=== PATIENT | female | born 1975 | race Caucasian/White ===

== ENCOUNTER 2023-08-21 12:12 | Emergency (ER) | payer OTHER, SELFPAY ==
--- NOTE | ~2023-08-21 | XR_ITS ---
EXAMINATION: XR shoulder LT min 2V INDICATION: Left shoulder pain TECHNIQUE: Four views of the left shoulder are submitted. COMPARISON: None FINDINGS: Alignment is normal. There is subtle lucency involving the greater tuberosity of the proxim al humerus. Glenohumeral and acromioclavicular joint spaces are normal. Soft tissues are unremarkable . IMPRESSION: 1. Subtle lucency involving the greater tuberosity of the proximal humerus, consistent with nondispla kayla fracture. Reviewed, dictated and finalized at location F. IMPRESSION: 1. Subtle lucency involving the greater tuberosity of the proximal humerus, con sistent with nondisplaced fracture.
[2023-08-21 12:32] VITALS: BP 105/73; PULSE 83; RESP 18; TEMP 36.7; O2SAT 100
--- NOTE | 2023-08-21 12:50 | ED.UPPEXIN ---
HPI - Extremity Injury (Upper) General Chief Complaint: Extremity Injury, Upper Stated Complaint: left arm and shoulder pain Time Seen by Provider: 08/21/23 12:40 Source: patient and RN notes reviewed Mode of arrival: ambulatory Limitations: no limitations History of Present Illness HPI narrative: Patient presents today complaining of a left shoulder injury. She was pulling weeds from a basement window well when she slipped and fell inside and her arm/shoulder stayed on the edge. Injury occurred approximately 3-1/2 hours prior to arrival. Denies numbness or tingling in the arm or hand. She currently rates her pain 08/01 and has been applying ice and taking ibuprofen with some relief. Related Data Home Medications Medication Instructions Recorded Confirmed bupropion HCl 150 mg tablet,12 hr 150 mg PO DAILY 08/21/23 08/21/23 sustained-release montelukast 10 mg tablet 10 mg PO DAILY 08/21/23 08/21/23 norethindrone 1 mg-ethinyl 2 tablet PO DAILY 08/21/23 08/21/23 estradiol 10 mcg (24)-iron 10 mcg(2) tablet (Lo Loestrin Fe) Allergies Allergy/AdvReac Type Severity Reaction Status Date / Time amoxicillin [From Amoxil] AdvReac Unknown Verified 08/21/23 12:41 clarithromycin [From Biaxin] AdvReac Unknown Verified 08/21/23 12:41 metronidazole [From Flagyl] AdvReac Unknown Verified 08/21/23 12:41 Review of Systems Review of Systems: CONSTITUTIONAL: Denies body aches, fever, chills, or sweats. EYES: Denies visual changes, redness, or discharge. ENT: Denies rhinorrhea, congestion, sore throat, or otalgia. CARDIOVASCULAR: Denies chest pain, palpitations, or edema. RESPIRATORY: Denies cough or dyspnea. GASTROINTESTINAL: Denies abdominal pain, nausea, vomiting, or diarrhea. GENITOURINARY: Denies dysuria or hematuria. SKIN: Denies rash, itching, or wounds. MUSCULOSKELETAL: Denies back pain. + left shoulder pain NEUROLOGIC: Denies headache, numbness, tingling, or weakness. PSYCH: Denies depression or anxiety. [facility] Past Medical History Medical History (Updated 08/21/23 @ 13:27 by Ellen Guerrero, GARMENT SEWING MACHINE OPERATOR, ) Anxiety Comments At time of signature, I have reviewed and agree with nursing past medical, surgical, social and family history unless otherwise noted. Please see nursing chart for further information. There is no relevant family history pertinent to the presenting complaint Exam Narrative: GENERAL: Well-appearing, well-nourished, and in no acute distress. HEAD: Normocephalic, atraumatic. EYES: EOMI. No redness or drainage. Conjunctivae normal. ENT: Mucous membranes pink and moist. NECK: Normal AROM. CHEST: No respiratory distress. EXTREMITIES: Left shoulder: Tenderness to the anterior and lateral shoulder, extending to the biceps. No edema or ecchymosis noted. Distal sensation intact. Capillary refill normal. Radial pulse normal. Full range of motion of the wrist and elbow. Significantly limited range of motion of the shoulder due to pain. SKIN: Warm, dry, no rash. Capillary refill normal. Normal skin turgor. NEURO: No focal deficits. Alert and oriented x3. Gait steady. PSYCH: Normal affect. No signs of depression or anxiety. Course Course Level of Care: Express Care Visit Vital Signs Vital signs: Vital Signs Temperature 98.0 F 08/21/23 12:32 Pulse Rate 83 08/21/23 12:32 Respiratory Rate 18 08/21/23 12:32 Blood Pressure 105/73 08/21/23 12:32 Pulse Oximetry 100 08/21/23 12:32 Oxygen Delivery Room Air 08/21/23 12:32 Temperature 98.0 F 08/21/23 12:32 Pulse Rate 83 08/21/23 12:32 Respiratory Rate 18 08/21/23 12:32 Blood Pressure 105/73 08/21/23 12:32 Pulse Oximetry 100 08/21/23 12:32 Oxygen Delivery Room Air 08/21/23 12:32 Reviewed MDM - Extremity Injury (Upper) MDM Narrative Medical decision making narrative: X-ray shows fracture of the proximal humerus. Patient will be placed in a sling. Discussed orthopedic follow-up. Pr
== END 2023-08-21 13:34 | disposition home or self-care (01) ==
PROVIDERS: Emergency Provider Nurse Practitioner; PCP Family Medicine
DX: S42.295A Other nondisplaced fracture of upper end of left humerus, initial encounter for closed fracture (principal); Z79.899 Other long term (current) drug therapy; W01.198A Fall on same level from slipping, tripping and stumbling with subsequent striking against other object, initial encounter
CPT/HCPCS: 73030; 99204; A4565; G0463

== ENCOUNTER 2023-10-26 13:50 | Emergency (ER) | payer OTHER, SELFPAY ==
--- NOTE | 2023-10-26 14:02 | ED.URI ---
HPI - URI/Sore Throat General Stated Complaint: cold symptoms Time Seen by Provider: 10/26/23 14:02 Source: patient Mode of arrival: ambulatory Limitations: no limitations History of Present Illness HPI Narrative: Kenia is a 48-year-old female patient presenting to the clinic today with complaints cough, nasal congestion, and fatigue times 2-3 days. She reports no known fever or chills. Denies any shortness of breath or chest pain has had positive exposure to someone with COVID. MD elicited complaint: cough, nasal congestion and other (Fatigue) Related Data Home Medications Medication Instructions Recorded Confirmed bupropion HCl 150 mg tablet,12 hr 150 mg PO DAILY 08/21/23 10/26/23 sustained-release montelukast 10 mg tablet 10 mg PO DAILY 08/21/23 10/26/23 norethindrone 1 mg-ethinyl 2 tablet PO DAILY 08/21/23 10/26/23 estradiol 10 mcg (24)-iron 10 mcg(2) tablet (Lo Loestrin Fe) tramadol 50 mg tablet 50 mg PO PRN PRN Pain 10/26/23 10/26/23 Allergies Allergy/AdvReac Type Severity Reaction Status Date / Time amoxicillin [From Amoxil] AdvReac Mild Hives Verified 10/26/23 14:04 clarithromycin [From Biaxin] AdvReac Mild Hives Verified 10/26/23 14:04 metronidazole [From Flagyl] AdvReac Mild Hives Verified 10/26/23 14:04 Review of Systems Review of Systems: Pertinent positives per HPI. Patient denies any fever, chills, rash, headache, visual changes, dizziness, shortness of breath, chest pain, palpitations, nausea, vomiting, diarrhea, constipation, abdominal pain, or any urinary issues. PMFSH Past Medical History Medical History Anxiety Comments At the time of my signature, I reviewed and agree with the nursing past medical, surgical, social, and family history. There is no relevant family history pertinent to the patient complaint. Exam Narrative: General: Well-developed, well nourished, in no apparent distress Head: Normocephalic, atraumatic Eyes: Pupils equally round and reactive to light bilaterally, EOM intact, sclera and conjunctive clear, no discharge, lids normal Ears: TMs intact and clear, ear canals clear, no drainage, grossly hearing normal. Nose: Nares patent, clear nasal discharge, no inflammation, no sinus tenderness. Mouth: Oral pharynx without lesions or masses, good dentition, MMM. Neck: Supple, trachea midline, no enlargement of anterior or posterior cervical nodes, no thyroid masses or goiter palpable. Cardio: Regular rate and rhythm, s1 and s2 normal, no murmur appreciated. Resp: Clear to auscultation bilaterally, no rhonchi, rales, wheezing or rubs Course Course Emergency Course: Portions of this record may have been created with voice recognition software. Level of Care: Express Care Visit Vital Signs Vital signs: Vital signs reviewed MDM - URI/Sore Throat MDM Narrative Medical decision making narrative: At the time of visit patient is resting comfortably on the exam table. Patient appears to be nontoxic. COVID and influenza testing was performed. Supportive measures were discussed with the patient and they voiced understanding discharge instructions and agrees to treatment plan. Return precautions reviewed Differential Diagnosis Differential diagnosis: Likely upper respiratory infection, otitis media, sinusitis, viral infection, bronchitis, influenza, pharyngitis and other (COVID) Discharge Plan Discharge Clinical Impression: URI (upper respiratory infection) Patient Disposition: Home, Self-Care Condition: Stable Instructions: Antibiotic Form, Upper Respiratory Infection (ED) Additional Instructions: COVID and influenza testing was negative in the clinic today. May take [id number] Sudafed as needed for nasal congestion Increase fluids and stay well hydrated Tylenol/motrin for pain/fever Flonase and OTC antihistamines such as Claritin or Zyrtec as directed Vicks vapor
[2023-10-26 14:08] VITALS: BP 130/74; PULSE 74; RESP 16; TEMP 36.1; O2SAT 99
== END 2023-10-26 14:32 | disposition home or self-care (01) ==
PROVIDERS: Emergency Provider Nurse Practitioner Family
DX: J06.9 Acute upper respiratory infection, unspecified (principal); Z20.822 Contact with and (suspected) exposure to COVID-19; F41.9 Anxiety disorder, unspecified
CPT/HCPCS: 87426; 87804; 99213; C9803; G0463

== ENCOUNTER 2023-11-27 11:39 | Emergency (ER) | payer OTHER, SELFPAY ==
--- NOTE | 2023-11-27 11:47 | ED.URI ---
HPI - URI/Sore Throat General Chief Complaint: Upper Respiratory Infection Stated Complaint: cold symptoms Time Seen by Provider: 11/27/23 11:49 Source: patient Mode of arrival: ambulatory Limitations: no limitations History of Present Illness HPI Narrative: Kenia is a 48-year-old female patient presenting to the clinic today with complaints of runny nose and cough x1 week. Reports that the nasal drainage is yellow. Has had exposure to COVID and is concerned that she may have influenza. She is requesting COVID and influenza testing. MD elicited complaint: cough and nasal congestion Related Data Home Medications Medication Instructions Recorded Confirmed bupropion HCl 150 mg tablet,12 hr 150 mg PO DAILY 08/21/23 11/27/23 sustained-release montelukast 10 mg tablet 10 mg PO DAILY 08/21/23 11/27/23 norethindrone 1 mg-ethinyl 2 tablet PO DAILY 08/21/23 11/27/23 estradiol 10 mcg (24)-iron 10 mcg(2) tablet (Lo Loestrin Fe) tramadol 50 mg tablet 50 mg PO PRN PRN Pain 10/26/23 11/27/23 Allergies Allergy/AdvReac Type Severity Reaction Status Date / Time amoxicillin [From Amoxil] AdvReac Mild Hives Verified 11/27/23 12:02 clarithromycin [From Biaxin] AdvReac Mild Hives Verified 11/27/23 12:02 metronidazole [From Flagyl] AdvReac Mild Hives Verified 11/27/23 12:02 Review of Systems Review of Systems: Pertinent positives per HPI. Patient denies any fever, chills, rash, headache, visual changes, dizziness, shortness of breath, chest pain, palpitations, nausea, vomiting, diarrhea, constipation, abdominal pain, or any urinary issues. PMFSH Past Medical History Medical History Anxiety Comments At the time of my signature, I reviewed and agree with the nursing past medical, surgical, social, and family history. There is no relevant family history pertinent to the patient complaint. Exam Narrative: General: Well-developed, well nourished, in no apparent distress Head: Normocephalic, atraumatic Eyes: Pupils equally round and reactive to light bilaterally, EOM intact, sclera and conjunctive clear, no discharge, lids normal Ears: TMs intact and clear, ear canals clear, no drainage, grossly hearing normal. Nose: Nares patent, clear discharge, mild inflammation, no sinus tenderness. Mouth: Oral pharynx without lesions or masses, good dentition, MMM. Neck: Supple, trachea midline, no enlargement of anterior or posterior cervical nodes, no thyroid masses or goiter palpable. Cardio: Regular rate and rhythm, s1 and s2 normal, no murmur appreciated. Resp: Clear to auscultation bilaterally, no rhonchi, rales, wheezing or rubs Course Course Emergency Course: Portions of this record may have been created with voice recognition software. Level of Care: Express Care Visit Vital Signs Vital signs: Vital signs reviewed MDM - URI/Sore Throat MDM Narrative Medical decision making narrative: At the time of visit patient is resting comfortably on the exam table. Patient appears to be nontoxic. Influenza and COVID test were negative. I suspect patient has URI. Prescription for prednisone was sent to the pharmacy. Supportive measures were discussed with the patient and they voiced understanding discharge instructions and agrees to treatment plan. Return precautions reviewed Differential Diagnosis Differential diagnosis: Likely upper respiratory infection, otitis media, sinusitis, viral infection, bronchitis, influenza, pharyngitis and other (COVID) Discharge Plan Discharge Clinical Impression: Upper respiratory infection Patient Disposition: Home, Self-Care Condition: Stable Instructions: Antibiotic Form, Upper Respiratory Infection (ED) Additional Instructions: COVID and influenza testing was negative in the clinic today. Take prescription medications only as prescribed-prednisone Increase fluids and stay well hydrated Tylenol/motri
[2023-11-27 11:56] VITALS: BP 131/73; PULSE 85; RESP 16; TEMP 36.7; O2SAT 100
== END 2023-11-27 12:26 | disposition home or self-care (01) ==
PROVIDERS: Emergency Provider Nurse Practitioner Family
DX: J06.9 Acute upper respiratory infection, unspecified (principal); Z20.822 Contact with and (suspected) exposure to COVID-19; F41.9 Anxiety disorder, unspecified
CPT/HCPCS: 87426; 87804; 99213; G0463

== ENCOUNTER 2025-09-09 13:22 | Emergency (ER) | payer OTHER, SELFPAY ==
--- OUTSIDE RECORDS SUMMARY | 2024-05-06 16:30 | XMS_ITS ---
Author Organization [facility] [place] ([address]) Address [address] [place] [address] Care Team Providers Care Pantry Attendant Name Role Phone Vandana Kenyon MD Primary Care Provider Unavailabl Kerrie Kirkpatrick Unavailable [phone] ZZ-Migration, Provider Unavailable Unavailab le Allergies Allergen (clinical drug ingredient) Drug/Non Drug Allergy documented on EMR Reaction Allergy Type Onset Date Status BIAXIN (uncoded) abdominal pain Allergy Active metronidazole Flagyl abdominal pain Drug Allergy Active REASON FOR VISIT [facility] To [facility] Conversion Encounter Medications Medication SIG (Take, Route, Frequency, Duration) Notes Start Date End Date Status ASTELIN 137 MCG/INH 2 SPRAY(S), EACH NOSTRIL INTRANASALLY BID; Duration: 30 DAY(S) *Please review for potential replacement for e-prescription and drug interaction check* Active buPROPion HCl ER (SR) 150 MG 1 tab(s) orally 2 times a day usually only takes 1 Active ZyrTEC Allergy 10 MG 1 tab(s) orally once a day Active Montelukast Sodium 10 MG 1 tab(s) orally once a day Active Lo Loestrin Fe 1 MG-10 MCG / 10 MCG 1 tab(s) orally once a day Active Flonase Allergy Relief 50 MCG/ACT 2 spray(s) intranasally (avoid nasal septum) twice daily; Duration: 30 day(s) Active Xyzal Allergy 24HR 5 MG 1 tab(s) orally once a day (in the evening); Duration: 30 day(s) Active Montelukast Sodium 10 MG 1 tab(s) orally once a day; Duration: 30 day(s) Active Encounters Encounter Location Date [facility] [address] [place] [address] 05/06/[facility]24 Provider Lissy Allergic rhinitis due to pollen J30.1 Assessments Encounter Date Diagnosis (ICD Code) Assessment Notes Treatment Notes Treatment Clinical Notes Section Notes 05/06/2024 Allergic rhinitis due to pollen (ICD-10 - J30.1) Plan Of Treatment Medication Medication Name Sig Start Date Stop Date Notes ASTELIN 137 MCG/INH 2 SPRAY(S), EACH NOSTRIL INTRANASALLY BID; Duration: 30 DAY(S) *Please review for potential replacement for e-prescription and drug interaction check* Flonase Allergy Relief 50 MCG/ACT 2 spray(s) intranasally (avoid nasal septum) twice daily; Duration: 30 day(s) Xyzal Allergy 24HR 5 MG 1 tab(s) orally once a day (in the evening); Duration: 30 day(s) Montelukast Sodium 10 MG 1 tab(s) orally once a day; Duration: 30 day(s) Progress Notes * Theresa IZQUIERDOOB: [birth year] (50 yo F)Acc No.[id number]:05/06/2024 Patient: Kenia LLAMAS Provider: Fortino Gayle :1975 A ge:49 Y S ex:Female Date:05/06/2024 Address:[address] [place], [place] [id number] Pcp:Vandana Kenyon MD Subjective: * Chief Complaints: * 1 . [facility] Conversion Encounter. * Medical History: * Medications: T aking Lo Loestrin Fe 1 MG-10 MCG / 10 MCG Tablet 1 tab(s) orally once a day , Taking ZyrTEC Allergy 10 MG Tablet 1 tab(s) orally once a day , Taking buPROPion HCl ER (SR) 150 MG Tablet Extended Release 12 Hour 1 tab(s) orally 2 times a day , Notes to Pharmacist: usually only takes 1, Taking Montelukast Sodium 10 MG Tablet 1 tab(s) orally once a day * Allergies: F lagyl: abdominal pain, BIAXIN: abdominal pain. Objective: * Vitals: Assessment: * Assessment: 1. A llergic rhinitis due to pollen - J30.1 (Primary) Plan: * Treatment: 2. O thers Continue Flonase Allergy Relief Suspension, 50 MCG/ACT, 2 spray(s), intranasally (avoid nasal septum), twice daily, 30 day(s), QS, Refills 3. * Billing Information: * Visit Code: * Procedure Codes: * Electronic signature of Lyn PATRICIA-Migration on 09/09/2025 at 01:26 PM CDT Sign off status: Pending * Provider: Fortino prieto Migration Date: 0 05/06/2024 Generated for Sundeep beaver/Jessica/Jose on: 1 01:26 PM CDT
--- NOTE | ~2025-09-09 | XR_ITS ---
EXAMINATION: XR foot RT min 3V, 09/09/2025 13:37 CDT HISTORY: lateral pain with trauma COMPARISON: No comparisons available. Findings: No acute fracture or malalignment. No significant degenerative changes. Soft tissues unremarkable. Impression: No acute fracture or malalignment. Reviewed, dictated and finalized at location P. Impression: No acute fracture or malalignment.
--- NOTE | ~2025-09-09 | XR_ITS ---
EXAMINATION: XR ankle RT min 3V, 09/09/2025 13:37 CDT HISTORY: lateral pain with trauma COMPARISON: No comparisons available. Findings: Nondisplaced fracture distal fibula. No significant degenerative changes. Soft tissue swelling. Impression: Fracture detailed above Reviewed, dictated and finalized at location P. Impression: Fracture detailed above
--- OUTSIDE RECORDS SUMMARY | 2025-09-09 13:26 | XMS_ITS | Encounter Summary ---
Author Organization [facility] Care Team Providers Care Seamless Tube Drawer Name Role Phone Enmanuel Jackson MD Primary Care Provider [phone] Keyonna Ventura Primary Care Provider No, Physician Primary Care Provider [phone] Encounter Details Date Type Department Care Team (Latest Contact Info) Description 08/23/2017 Orders Only [facility] ProviderFidelia MD [address] [place] [id number] Social History Tobacco Use Types Packs/Day Years Used Date Smoking Tobacco: Never Assessed Comments Unknown Sex and Gender Information Value Date Recorded Sex Assigned at Not on file Legal Sex Female 12:41 AM TALENT DIRECTOR Gender Identity Not on file Sexual Orientation Not on file documented as of this encounter Plan of Treatment Not on file documented as of this encounter Procedures Procedure Name Priority Date/Time Associated Diagnosis Comments SCAN - LABS 08/23/2017 12:00 AM CDT documented in this encounter Results * SCAN - LABS (08/23/2017 12:00 AM CDT) Narrative 08/23/2017 12:00 AM CDT Ordered by an unspecified provider. Historical Provider Final Res ult documented in this encounter Visit Diagnoses Not on filedocumented in this encounter Care Teams Seamless Tube Drawer Relationship Specialty Start Date End Date Enmanuel Jackson MD PCP - General Family Medicine 03/17/19 08/04/22 Kyeonna Ventura PA PCP - General Family Medicine 08/05/22 06/06/23 No, Physician PCP - General 08/05/23 documented as of this encounter
--- OUTSIDE RECORDS SUMMARY | 2025-09-09 13:26 | XMS_ITS | Encounter Summary ---
Author Organization [facility] Care Team Providers Care Profiling Machine Operator Name Role Phone Enmanuel Jackson MD Primary Care Provider [phone] Keyonna Ventura Primary Care Provider No, Physician Primary Care Provider [phone] Encounter Details Date Type Department Care Team (Latest Contact Info) Description 11/19/2017 Orders Only [facility]INCON[facility] ProviderFidelia MD [address] [place] [id number] Social History Tobacco Use Types Packs/Day Years Used Date Smoking Tobacco: Never Assessed Comments Unknown Sex and Gender Information Value Date Recorded Sex Assigned at Not on file Legal Sex Female 12:41 AM RECEIVING SPECIALIST Gender Identity Not on file Sexual Orientation Not on file documented as of this encounter Plan of Treatment Not on file documented as of this encounter Procedures Procedure Name Priority Date/Time Associated Diagnosis Comments SCAN - LABS 11/23/2017 12:00 AM RECEIVING SPECIALIST SCAN - LABS 11/23/2017 12:00 AM RECEIVING SPECIALIST documented in this encounter Results * SCAN - LABS (11/23/2017 12:00 AM RECEIVING SPECIALIST) Narrative 11/23/2017 12:00 AM RECEIVING SPECIALIST Ordered by an unspecified provider. Historical Provider Final Res ult * SCAN - LABS (11/23/2017 12:00 AM RECEIVING SPECIALIST) Narrative 11/23/2017 12:00 AM RECEIVING SPECIALIST Ordered by an unspecified provider. us Historical Provider MD Final Res ult documented in this encounter Visit Diagnoses Not on filedocumented in this encounter Care Teams Profiling Machine Operator Relationship Specialty Start Date End Date Enmanuel Jackson MD PCP - General Family Medicine 03/17/19 08/04/22 Keyonna Ventura PA PCP - General Family Medicine 08/05/22 06/06/23 No, Physician PCP - General 08/05/23 documented as of this encounter
--- OUTSIDE RECORDS SUMMARY | 2025-09-09 13:26 | XMS_ITS | Clinical Summary ---
Author Organization [facility] Address [address] [place] [address] Care Team Providers Care Fish Bait Picker Name Role Phone Jung Corey MD Unavailable [phone] Vandana Kenyon MD Primary Care Provider [phone] Source Comments [facility],non-owned Affiliates and Associated Physician Practices is amultiple site organization consisting of ambulatory clinics and hospital sitesin [place], [place], [place] and [place]. This disclosure is being madepursuant to the Care Everywhere program and may not contain all information available regarding this patient. Last updated 18.[facility] Allergies Active Allergy Reactions Criticality Noted Date Comments Amoxicillin Low 01/30/2014 Other reaction(s): Other (See Comments) Patient states that this medication does not work for her. Clarithromycin Nausea and/or Vomiting,Headache 08/05/2016 Metronidazole Nausea and/or Vomiting,Headache 08/05/2016 Medications * Be aware that medications may not be up to date on this document. Alwaysverify current medications with the patient. montelukast (Singulair) 10 MG tablet Take 1 (one) tablet by mouth at bedtime Active Multiple Vitamins-Minera ls (MULTIVITAMIN & MINERAL PO) Active b-complex-c capsule Active benzonatate (Tessalon) 200 MG capsule Take 1 (one) capsule by mouth 3 times daily as needed for Cough 30 capsule Active buPROPion HCl (WELLBUTRIN PO) Wellbutrin Act tali norethin-eth estrad-fe biphas (Lo Loestrin Fe) 1 MG-10 MCG / 10 MCG tablet Take 1 (one) tablet by mouth once daily Active Active Problems Problem Noted Date Diagnosed Date Seasonal allergic rhinitis 10/24/2022 Depressive disorder 10/24/2022 Generalized anxiety disorder 02/08/2017 Depression, major, recurrent, moderate 7 Acute gout of left hand 10/19/2016 Interstitial cystitis 05/26/2016 Seasonal allergies 05/26/2016 Chronic interstitial cystitis 04/18/2013 Family History Medical History Relation Name Comments Cancer - Prostate Father Heart Disease Maternal Grandmother CVA Mother Celiac Disease Mother Heart defect Mother Asthma Neg Hx Autoimmune Disease Neg Hx Bipolar Disorder Neg Hx Cancer - Breast Neg Hx Cancer - Colon Neg Hx Cancer - Other Neg Hx Cancer - Ovarian Neg Hx Cancer - Pancreatic Neg Hx Depression Neg Hx Eczema Neg Hx Hypertension Neg Hx Migraine Neg Hx Osteoporosis Neg Hx Seizures Neg Hx Sudd. <30 Neg Hx Thyroid Disease Neg Hx Ulcerative Colitis Neg Hx Relation Name Status Comments Father Alive Maternal Grandmother Mother Alive Social History Tobacco Use Types Packs/Day Years Used Date Smoking Tobacco: Never Smokeless Tobacco: Never Alcohol Use Standard Drinks/Week Comments Yes 0.8 (1 standard drink = 0.6 oz p ure alcohol) rare PHQ-2 Answer Date Recorded PHQ2 TOTAL SCORE 0 08/06/2022 Comments No Sex and Gender Information Value Date Recorded Sex Assigned at Not on file Legal Sex Female 8:58 AM CDT Gender Identity Not on file Sexual Orientation Not on file Last Filed Vital Signs Vital Sign Reading Time Taken Comments Blood Pressure 118/68 02/13/2025 3:36 PM CDT Pulse 89 10/24/2022 12:15 PM NATIONAL BUSINESS DIRECTOR Temperature 36.3 C (97.3 F) 10/24/2022 12:15 PM NATIONAL BUSINESS DIRECTOR Respiratory Rate 18 10/24/2022 12:15 PM NATIONAL BUSINESS DIRECTOR Oxygen Saturation 100% 10/24/2022 12:15 PM NATIONAL BUSINESS DIRECTOR Inhaled Oxygen Concentration - - Weight 74.8 kg (165 lb) 02/13/2025 3:36 PM CDT Height 165.1 cm (5' 5) 02/13/2025 3:36 PM CDT Body Mass Index 27.46 02/13/2025 3:36 PM CDT Plan of Treatment Health Maintenance Due Date Last Done Comments COLOGUARD (AGES 45-75) - COL ON CA SCREENING 1973 COLON MONITORING 1973 COLONOSCOPY - COLON CA SCREENING 1973 CT COLONOGRAPHY - COLON CA SCREENING 1973 Colorectal Cancer Screening 1973 FIT - COLON CA SCREENING 1973 FLEX SIG - COLON CA SCREENING 1973 LIPID TESTING 1973 HIV SCREENING 1988 HEPATITIS C SCREENING 04/21/1991 DTAP/TDAP/TD VACCINES (1 - Tdap) 1992 HEPATITIS B VACCINE (1 of 3 - 19+ 3-dose series) 1992 PNEUMOCOCCAL VACCINE 50+ (1 of 1 - PCV) 2023 ZOSTER VACCINE (1 of 2) 2023 MAMMOGRAM 02/21/2024 02/20/2022, 02/20/2022 DEPRESSION SCREENING 11/22/2024 10/24/2022, 08/06/2022 PAP SMEAR 02/04/2025 02/04/2022, 05/05/2016 SCREENING FOR DIABETES 02/13/2025 COVID-19 VACCINE (4 - 2024-2 6 season) 2025 11/28/2021, 05/09/2021, 04/18/2021 INFLUENZA VACCINE (#1) 2025 08/17/2022 HIB VACCINE Aged Out No longer eligi ble based on patient's age to complete this topic HPV VACCINE Aged Out No longer eligi ble based on patient's age to complete this topic MENINGOCOCCAL (Group B) VACCINE SHARED DECISION-MAKING Aged Out No longer eligible based on patient's age to complete this topic MENINGOCOCCAL GROUPS A/C/Y/W VACCINE Aged Out No longer eligible b ased on patient's age to complete this topic Procedures Procedure Name Priority Date/Time Associated Diagnosis Comments PAP IMAGE-GUIDED W HPV Routine 05/05/2016 12:00 AM CDT from Last 3 Months or Most Recently Relevant to Health Maintenance Results * PAP IMAGE-GUIDED LIQUID BASE W HPV (05/05/2016 12:00 AM CDT) Pap Image-Guided Liquid-Based with HPV Specimen:Endocervi whitney ThinPrep Slides:1 SPECIMEN ADEQUACY: SATISFACTORY FOR EVALUATION - No Endocervical / Transformation Zone Component Present INTERPRETATION: NEGATIVE FOR INTRAEPITHELIAL LESION OR MALIGNANCY OTHER FINDINGS: - Predominance of coccobacilli consistent with a shift in vaginal neil NOTE(S): HPV DIRECT - HPV Result to Follow This specimen was evaluated by the ThinPrep Imaging System along with an additional manual rescreening by a nurses supervisor and/or pathologist Interpretation performed by Tani LÓPEZ(ASCP). Electronically signed 05/06/2016 [facility] Endocervical 05/05/2016 05/06/2016 10:30 AM CDT Narrative [facility] - 05/07/2016 10:38 AM CDT Results of last pap?->Normal Igor Sainz MD LAB - PATHOLOGY/CYTOLOGY ORDERA BLES Final Result [facility] from Last 3 Months or Most Recently Relevant to Health Maintenance Insurance [employer] [facility] Address: [address] [id number] Advance Directives * FULL RESUSCITATION (Latest Code Status on File) Date Activated Date Inactivated Comments 03/31/2013 12:52 PM 03/31/2013 5:41 PM Care Teams Fish Bait Picker Relationship Specialty Start Date End Date Vandana Kenyon MD [address] [address] PCP - General Family Medicine 01/30/25 Jung Corey MD Internal Medicine 08/05/16
--- OUTSIDE RECORDS SUMMARY | 2025-09-09 13:26 | XMS_ITS | Patient Health Record ---
Author Organization [facility] [employer] [facility] Address [address] [facility] [address] [place] [address] Care Team Providers Care Front Office Java Developer Name Role Phone Shae Anthony Unavailable [phone] Reason For Referral No Information Medications Medication SIG (Take, Route, Frequency, Duration) Notes Start Date End Date Status Rexulti 1 mg Tablet Oral 02/02/2019 Active buPROPion HCl ER (SR) 150 MG Tablet Extended Release 12 Hour Oral 02/02/2019 Active Montelukast Sodium 10 MG Tablet Oral 02/02/2019 Active Social History Social History Additional Details Category Social Info Options Details Migrated Social History Migrated Social History Alcohol Intake: Occasional 09/24/2020,Tobacco Years: Former smoker 09/24/2020 Plan Of Treatment No Information Insurance Providers Payer Name Payer Address Payer Phone Subscriber Number Group Number Insured Name Patient Relationship to Insured Coverage Start Date Coverage End Date Cigna [address] [place] [address] [id number] JOSE DE JESUS RODRIGUEZ Self - patient is the insured
--- OUTSIDE RECORDS SUMMARY | 2025-09-09 13:26 | XMS_ITS | Encounter Summary ---
Author Organization [facility] Facility Care Team Providers Care Automatic Chief Name Role Phone Enmanuel Jackson MD Primary Care Provider [phone] Keyonna Ventura Primary Care Provider No, Physician Primary Care Provider [phone] Encounter Details Date Type Department Care Team (Latest Contact Info) Description 10/21/2018 Orders Only [facility]IN[facility] ProviderFidelia MD [address] [place] [address] Social History Tobacco Use Types Packs/Day Years Used Date Smoking Tobacco: Never Assessed Comments Unknown Sex and Gender Information Value Date Recorded Sex Assigned at Not on file Legal Sex Female 12:41 AM BRANCH LEAD Gender Identity Not on file Sexual Orientation Not on file documented as of this encounter Plan of Treatment Not on file documented as of this encounter Procedures Procedure Name Priority Date/Time Associated Diagnosis Comments SCAN - LABS 10/24/2018 12:00 AM BRANCH LEAD SCAN - LABS 10/24/2018 12:00 AM BRANCH LEAD SCAN - LABS 10/24/2018 12:00 AM BRANCH LEAD documented in this encounter Results * SCAN - LABS (10/24/2018 12:00 AM BRANCH LEAD) Narrative 10/24/2018 12:00 AM BRANCH LEAD Ordered by an unspecified provider. Historical Provider Final Res ult * SCAN - LABS (10/24/2018 12:00 AM BRANCH LEAD) Narrative 10/24/2018 12:00 AM BRANCH LEAD Ordered by an unspecified provider. Historical Provider Final Res ult * SCAN - LABS (10/24/2018 12:00 AM BRANCH LEAD) Narrative 10/24/2018 12:00 AM BRANCH LEAD Ordered by an unspecified provider. Historical Provider Final Res ult documented in this encounter Visit Diagnoses Not on filedocumented in this encounter Care Teams Automatic Chief Relationship Specialty Start Date End Date Enmanuel Jackson MD PCP - General Family Medicine 03/17/19 08/04/22 Keyonna Ventura PA PCP - General Family Medicine 08/05/22 06/06/23 No, Physician PCP - General 08/05/23 documented as of this encounter
--- OUTSIDE RECORDS SUMMARY | 2025-09-09 13:26 | XMS_ITS | Encounter Summary ---
Author Organization [facility] Facility Care Team Providers Care Pipe Bowls Paint Trimmer Name Role Phone Enmanuel Jackson MD Primary Care Provider [phone] Keyonna Ventura Primary Care Provider No, Physician Primary Care Provider [phone] Encounter Details Date Type Department Care Team (Latest Contact Info) Description 07/21/2016 Orders Only [facility]INCON[facility] ProviderFidelia MD [address] [place] [address] Social History Tobacco Use Types Packs/Day Years Used Date Smoking Tobacco: Never Assessed Comments Unknown Sex and Gender Information Value Date Recorded Sex Assigned at Not on file 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 Historical Provider Final Res ult * SCAN - LABS (07/22/2016 12:00 AM CDT) Narrative 07/22/2016 12:00 AM CDT Ordered by an unspecified provider. us Historical Provider Final Res ult documented in this encounter Visit Diagnoses Not on filedocumented in this encounter Care Teams Pipe Bowls Paint Trimmer Relationship Specialty Start Date End Date Enmanuel Jackson MD PCP - General Family Medicine 03/17/19 08/04/22 Keyonna Ventura PA PCP - General Family Medicine 08/05/22 06/06/23 No, Physician PCP - General 08/05/23 documented as of this encounter
--- OUTSIDE RECORDS SUMMARY | 2025-09-09 13:26 | XMS_ITS | Encounter Summary ---
Author Organization [facility] Facility Care Team Providers Care Rod Filler Name Role Phone Enmanuel Jackson MD Primary Care Provider [phone] Keyonna Ventura Primary Care Provider No, Physician Primary Care Provider [phone] Encounter Details Date Type Department Care Team (Latest Contact Info) Description 11/23/2017 Orders Only [facility]INCON[facility] ProviderFidelia MD [address] [place] [address] Social History Tobacco Use Types Packs/Day Years Used Date Smoking Tobacco: Never Assessed Comments Unknown Sex and Gender Information Value Date Recorded Sex Assigned at Not on file Legal Sex Female 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 Historical Provider Final Res ult documented in this encounter Visit Diagnoses Not on filedocumented in this encounter Care Teams Rod Filler Relationship Specialty Start Date End Date Enmanuel Jackson MD PCP - General Family Medicine 03/17/19 08/04/22 Keyonna Ventura PA PCP - General Family Medicine 08/05/22 06/06/23 No, Physician PCP - General 08/05/23 documented as of this encounter
--- OUTSIDE RECORDS SUMMARY | 2025-09-09 13:26 | XMS_ITS | Clinical Summary ---
Author Organization [facility] Address [address] [place] [address] Care Team Providers Care Violin Maker Hand Name Role Phone No, Physician Primary Care Provider [phone] Allergies Active Allergy Reactions Criticality Noted Date Comments Amoxicillin Unknown 03/10/2019 Does not work for pt Clarithromycin Stomach upset Low 03/10/2019 Metronidazole Unknown 03/10/2019 Medications B complex 16-onwle-H-biot -zinc [id number] oq-fx-lsh-mg tablet Take by mouth Active multivitamin capsule Take 1 capsule by mouth daily Active magnesium oxide,aspartate ,citr (TRIPLE MAGNESIUM COMPLEX ORAL) Active ASHWAGANDHA ROOT EXTRACT ORAL Active loratadine (CLARITIN) 10 mg tabletIndicatio ns:Seasonal allergies TAKE 1 TABLET BY MOUTH EVERY DAY 30 tablet 2 Active gabapentin (NEURONTIN) 100 mg capsule Take 100 mg by mouth 3 (three) times a day 2 Active ibuprofen (ADVIL,MOTRIN) 600 mg tablet Take 600 mg by mouth 3 (three) times a day 2 Active calcium-vitamin D3-vitamin K 500 mg-1,000 unit-40 mcg tablet,chewable Take 1 capsule by mouth daily Vitamin d 5000 units Vitamin K Active UNABLE TO FIND Take 1 each by mouth daily Monolaurin (immune boost) Active predniSONE (DELTASONE) 10 mg tablet 60mg times 3 days, 40mg times 3 days, 20mg times 3 days, 10mg times 3 days 39 tablet 2 Active fluconazole (DIFLUCAN) 150 mg tablet Take 1 tablet (150 mg total) by mouth as directed Take one tab now. Repeat in 2 days 2 tablet 2 Active buPROPion SR (WELLBUTRIN SR) 150 mg 12 hr tabletIndicatio ns:Depression, major, recurrent, moderate (HCC) TAKE 1 TABLET BY MOUTH TWICE A DAY 180 tablet 1 3 Active montelukast (SINGULAIR) 10 mg tabletIndicatio ns:Seasonal allergies TAKE 1 TABLET BY MOUTH EVERY DAY 30 tablet 1 3 Active norethindrone-e .estradioL-iron (Lo Loestrin Fe) 1 mg-10 mcg (24)/10 mcg (2) tablet per tablet TAKE 1 TABLET BY MOUTH EVERY DAY 84 tablet 3 Active Active Problems Problem Noted Date Diagnosed Date Depression, major, recurrent, moderate 7 Generalized anxiety disorder 02/08/2017 Acute gout of left hand 10/19/2016 Interstitial cystitis 05/26/2016 Seasonal allergies 05/26/2016 Chronic interstitial cystitis 04/18/2013 Immunizations Immunization Administration Dates Next Due Moderna SARS-CoV-2 Monovalent Vaccination (12+ Y RS) 11/28/2021 Surgical History Surgery Date Site/Laterality Comments HERNIA REPAIR SECTION Medical History Medical History Date Comments Depression Anxiety Seasonal allergies Interstitial cystitis Sprained ankle 04/23/2022 Left Family History Medical History Relation Name Comments No Known Problems Father Stroke Mother No Known Problems Son Relation Name Status Comments Father Alive Mother Alive Son Alive Social History Tobacco Use Types Packs/Day Years Used Date Smoking Tobacco: Former Smokeless Tobacco: Never Tobacco Cessation:Counseling Given: Not Answered Alcohol Use Standard Drinks/Week Comments Yes 0 (1 standard drink = 0.6 oz pur e alcohol) 1-3 drinks socially. AUDIT-C Answer Date Recorded Q1: How often do you have a drink containing alc ohol? Monthly or less 08/05/2022 Q2: How many drinks containi ng alcohol do you have on a typical day when you are drinking? 1 or 2 08/05/2022 Q3: How often do you have si x or more drinks on one occasion? Never 08/05/2022 PHQ-2 Answer Date Recorded PHQ-2 Total Score (If total score is 3 or more points, staff should administer the PHQ-9) 0 08/05/2022 Personal Safety Answer Date Recorded Getting School Help Needed Not on file 12/22 Comments No Sex and Gender Information Value Date Recorded Sex Assigned at Not on file Legal Sex Female 12:41 AM [employer] Gender Identity Not on file Sexual Orientation Not on file Obstetrics History Para Term AB IAB SAB Ectopic Multiple Livin g Live Births 1 1 1 0 0 0 0 0 0 1 1 Date Outcome GA Total Labor Labor/2nd/3rd Weight Sex Type Anes PTL Lianne A1 A5 Name Clin Term Last Filed Vital Signs Vital Sign Reading Time Taken Comments Blood Pressure 100/70 08/05/2022 7:56 AM CDT Pulse 76 08/05/2022 7:56 AM CDT Temperature 36.5 C (97.7 F) 08/05/2022 7:56 AM CDT Respiratory Rate 20 08/05/2022 7:56 AM CDT Oxygen Saturation 98% 08/05/2022 7:56 AM CDT Inhaled Oxygen Concentration - - Weight 73.3 kg (161 lb 9.6 oz) 08/05/2022 7:56 A M CDT Height 162.6 cm (5' 4) 08/05/2022 7:56 AM CDT Body Mass Index 27.74 08/05/2022 7:56 AM CDT Plan of Treatment Health Maintenance Due Date Last Done Comments Colon Cancer Screening-Colonoscopy 1973 Hepatitis C Screening 1973 DTaP/Tdap/Td Vaccine (1 - Tdap) 1984 Hepatitis B Screening 1991 Cervical Cancer Screening 02/04/2023 02/04/2022 Breast Cancer Screening-Mammogram 02/20/2023 02/20/2022 Zoster Vaccine (1 of 2) 2023 Depression Screening 08/05/2023 08/05/2022, 03/28/2021, 03/17/2019, Additional history exists Regular Well Visit/Exam 18-64 08/05/2023 08/05/2022, 02/04/2022, 07/24/2020 Covid-19 Vaccine ( season) 2025 11/28/2021, 05/09/2021, 04/18/2021 Influenza Vaccine (#1) 2025 Pneumococcal vaccine <65 Aged Out No longer eligible based on patient's age to complete this topic Procedures Procedure Name Priority Date/Time Associated Diagnosis Comments SCREENING MAMMOGRAM BILATERAL W DONNA Schedule Routine, Read Routine (OP Routine) 02/20/2022 11:26 AM CDT Well woman exam with routine gynecological exam PAP AND HIGH RISK HPV, REFLEX TO GENOTYPING Routine 02/04/2022 11:39 AM CDT Well woman exam with routine gynecological exam from Last 3 Months or Most Recently Relevant to Health Maintenance Results * SCREENING MAMMOGRAM BILATERAL W DONNA (02/20/2022 11:26 AM CDT) Anatomical Region Laterality Modality Breast Bilateral Mammography Impressions 02/20/2022 11:40 AM CDT BI-RADS ATLAS category (overall): 2 - Benign There is no mammographic evidence of malignancy. A 1 year screening mammogram is recommended. The patient has been or will be contacted. We recommend annual screening mammography for women at average risk of breast cancer beginning at age 40, based on guidelines of the [place] [employer] (ACR Practice Parameter for the Performance of Screening and Diagnostic Mammography) and [place] [employer]. For women with and elevated risk of breast cancer, please refer to the ACR Practice Parameter for specific screening recommendations. The patient will be entered into a reminder system with a target due date of 1 year for her next screening exam. Narrative 02/20/2022 11:40 AM CDT SCREENING MAMMOGRAM BILATERAL W DONNA: 02/20/22 The study was acquired using full field digital technology and interpreted from soft copy. 2D digital mammographic views, as well as 3D digital tomosynthesis were performed in the CC and MLO projections. CLINICAL: Well woman exam with routine gynecological exam. No relevant medical history has been documented for this patient. No known family history of breast cancer. No comparisons were made when reading this study. This will serve as the patient's baseline mammogram. BREAST TISSUE: The breasts are heterogeneously dense, which may obscure small masses. FINDINGS: There are benign appearing scattered calcifications in both breasts. There is also a benign appearing intramammary lymph node in the lateral right breast, middle depth. No suspicious masses, suspicious calcifications, or other suspicious findings are seen within either breast. Bonnie Rodriguez [facility] IMG MAMMO PROCEDURES Fi nal Result * Pap and High Risk HPV, reflex to Genotyping (02/04/2022 11:39 AM CDT) Thin prep (Pap test) 02/04/2022 11:39 AM CDT 02/05/2022 11:39 AM CDT Narrative PATHOLOGY [facility] - 02/09/2022 4:46 PM CDT [facility] Department of Pathology [address] [place], [place] [id number] Final Report with Addendum Note to Patients: This report may contain a detailed description of human tissue sent by a health care provider to the laboratory for pathologic evaluation. The content of this report is essential for diagnosis and may provide important critical findings. This information may be unfamiliar to patients to review without a medical professional present. It is advised that the patient review this report in the presence of a health care provider who can answer questions and explain the details. Patient Name: KENIA IZQUIERDO Address: [address] [place] [address] Gender: F : 1975 (Age: 46) Service: Laboratory Location: Hospital #: [id number] Patient Type: [facility] SPECIMEN Taken: 02/04/2022 Received: 02/05/2022 Accessioned:: 02/06/2022 Reported: 02/09/2022 [facility]: Source of Specimen: SCREENING THIN PREP IMAGED PAP w/ HPV Specimen Adequacy: - Satisfactory for evaluation; endocervical/transformation zone component present General Category: - Negative for intraepithelial lesion or malignancy RENE Aceves(ASCP) Report Electronically Reviewed and Signed Out By RENE Aceves(ASCP) 02/09/2022 16:46:37 Addenda: HPV Test Interpretation NEGATIVE for types 16, 18, 31, 33, 35, 39, 45, 51, 52, 56, 58, 59, 66 and 68. Test performed utilizing Gen-Probe Aptima assay. RENE Ward(ASCP) Report Electronically Reviewed and Signed Out By RENE Ward(ASCP) 02/06/2022 15:51:22 Specimen(s) Received: A: SCREENING THIN PREP IMAGED PAP w/ HPV Clinical History: Menstrual History: Perimenopausal Contraceptive History: Oral Contraceptives The Pap test is a screening test used to aid in the detection of cervical cancer and its precursors. It should not be the sole means by which malignant and premalignant lesions are diagnosed. Both false negative and false positive results may occur. It also has poor sensitivity for the detection of endometrial lesions and should not be used to evaluate suspected endometrial abnormalities. For these reasons it is most important to obtain Pap tests at regular intervals. The performance characteristics of some immunohistochemical stains, fluorescence in-situ hybridization tests and immunophenotyping by flow cytometry cited in this report (if any) were determined by the Surgical Pathology Department at [facility] as part of an ongoing senior quality control inspector program and in compliance with federally mandated regulations drawn from the Clinical Laboratory Improvement Act of 1988 (CLIA '88). Some of these tests rely on the use of analyte specific reagents and are subject to specific labeling requirements by the US Food and Drug Administration. Such diagnostic tests may only be performed in a facility that is certified by the Department of Health and Human Services as a high complexity laboratory under CLIA '88. The FDA has determined that such clearance or approval is not necessary. This test is used for clinical purposes. It should not be regarded as investigational or for research. Nevertheless, federal rules concerning the medical use of analyte specific reagents require that the following disclaimer be attached to the report: This test was developed and its performance characteristics determined by the Surgical Pathology Department [facility]. It has not been cleared or approved by the U. S. Food and Drug Administration. Bonnie [facility] CYTOLOGY ORDERABLES Final Result [facility] from Last 3 Months or Most Recently Relevant to Health Maintenance Insurance [employer] OPEN ACCESS Member Subscriber Plan / Payer (Ef fective 2020-Present) Name:Kenia Izquierdo Relation to Subscriber:Self Name:Kenia Izquierdo Payer ID:[id number] (NAIC) Group ID:[id number] Type: [employer] Address: [address] [place] [id number] Care Teams Violin Maker Hand Relationship Specialty Start Date End Date No, Physician PCP - General 08/05/23
--- OUTSIDE RECORDS SUMMARY | 2025-09-09 13:26 | XMS_ITS | Clinical Summary ---
Author Organization [facility] Address [address] [place] [address] Phone Care Team Providers Care Vp & General Counsel Name Role Phone Unavailable Primary Care Provider Unavailabl e Allergies Active Allergy Reactions Criticality Noted Date Comments Amoxicillin Unknown Low 01/30/2014 Does not work for pt Other reaction(s): Other (See Comments) Patient states that this medication does not work for her. Clarithromycin Headache,Muscle Pain,Nausea and Vomiting,Other (See Comments) Low 08/05/2016 Metronidazole Abdominal Pain,Headache,Nausea and Vomiting Low 08/05/2016 Medications B-Complex with Vitamin C Capsule Take 1 Tablet by mouth daily. Active iv-gq-KY-vit Z-usatu-jwq-co Q10 (Daily Multivitamin) 200-100-500 mcg Capsule Take 1 Capsule by mouth daily. Active buPROPion HCL (WELLBUTRIN SR) 150 mg Sustained Release 12 hour tablet Take 1 Tablet by mouth 2 times daily. 3 Active calcium-vitami n D3-vitamin K 500 mg-1,000 unit-40 mcg Tablet, Chewable Take 1 Capsule by mouth daily. Active cetirizine (ZyrTEC) 10 mg tablet Take 10 mg by mouth daily. 4 Active fluticasone propionate (Flonase Allergy Relief) 50 mcg/spray Benld, Suspension nasal inhaler Administer 2 Sprays in each nostril daily. Active ibuprofen (MOTRIN) 600 mg tablet Take 600 mg by mouth every 6 hours as needed for Other (See Comment) (headaches). 2 Active Lo Loestrin Fe 1 mg-10 mcg (24)/10 mcg (2) Tablet per tablet Take 1 Tablet by mouth daily. Active montelukast (SINGULAIR) 10 mg tablet Take 10 mg by mouth daily. 3 Active nystatin (MYCOSTATIN) 100,000 unit/gram Cream Apply to affected area see administration instructions. Active terbinafine HCL (LamISIL) 250 mg tablet Take 250 mg by mouth daily. 4 Active Active Problems No known active problems Social History Tobacco Use Types Packs/Day Years Used Date Smoking Tobacco: Former Cigarettes Smokeless Tobacco: Never Alcohol Use Standard Drinks/Week Comments Yes 0 (1 standard drink = 0.6 oz pur e alcohol) socially Comments Unknown Sex and Gender Information Value Date Recorded Sex Assigned at Female 03/15/2024 2:47 PM CDT Legal Sex Female 8:31 AM CDT Gender Identity Female 03/15/2024 2:47 PM CDT Sexual Orientation Straight 03/15/2024 2: 47 PM CDT Last Filed Vital Signs Vital Sign Reading Time Taken Comments Blood Pressure - - Pulse - - Temperature - - Respiratory Rate 16 03/17/2024 2:03 PM CDT Oxygen Saturation - - Inhaled Oxygen Concentration - - Weight 73.9 kg (163 lb) 03/17/2024 2:03 PM CDT Height 162.6 cm (5' 4) 03/17/2024 2:03 PM CDT Body Mass Index 27.98 03/17/2024 2:03 PM CDT Plan of Treatment Health Maintenance Due Date Last Done Comments DTAP/TDAP/TD VACCINES (1 - Tdap) 1992 HEPATITIS B VACCINES (1 of 3 - 19+ 3-dose series) 1992 HPV/Cotest (21-29) 1994 HPV/Cotest (30-65) 2003 COLORECTAL SCREENING 2018 Colorectal Cancer Screening 2018 FIT-DNA Q 3 years 2018 FIT/FOBT Q 1 year 2018 Flex Sig/CT Colonography Q 5 years 2018 BREAST CANCER SCREENING 02/20/2023 02/20/2022, 02/20 ZOSTER VACCINE (1 of 2) 2023 CERVICAL CANCER SCREENING 02/04/2025 PAP SMEAR 02/04/2025 02/04/2022 INFLUENZA VACCINE (#1) 2025 COVID-19 Vaccine ( season) 2025 11/28/2021, 05/09/2021, 04/18/2021 Insurance [employer] OPEN ACCESS
--- OUTSIDE RECORDS SUMMARY | 2025-09-09 13:27 | XMS_ITS | Clinical Summary ---
Author Organization [facility] Address [facility]ly [facility] [place] [address] Care Team Providers Care Gps Navigation Installer Name Role Phone Vandana Kenyon MD Primary Care Provider [phone] Allergies Active Allergy Reactions Criticality Noted Date Comments Amoxicillin Other (see comment) 03/13/2025 Immune to it - it doesn't work Clarithromycin GI Upset 03/13/2025 Cramping Metronidazole GI Upset 03/13/2025 Cramping Medications buPROPion SR (WELLBUTRIN SR) 150 MG 12 hr tablet Take 1 tablet (150 mg total) by mouth 2 (two) times daily. Active Calcium-Vitamin D-Vitamin K 500-1000-40 MG-UNT-MCG Chew Tab Chew 1 capsule by mouth daily. Active fluticasone propionate (FLONASE) 50 MCG/ACT nasal spray 2 sprays by Each Nostril route daily. Active montelukast (SINGULAIR) 10 MG tablet Take 1 tablet (10 mg total) by mouth daily. Active Multiple Vitamin (MULTIVITAMIN) capsule Take 1 capsule by mouth daily. Active LO LOESTRIN FE 1 MG-10 MCG / 10 MCG Tab Take 1 tablet by mouth daily. Active cetirizine (ZYRTEC) 10 MG tablet Take 1 tablet (10 mg total) by mouth daily. Active glucosamine-chondr oitin 500-400 MG Cap Take 1 capsule by mouth daily. Active omega-3 fatty acid (FISH OIL) 500 MG capsule Take 1 capsule (500 mg total) by mouth daily. Active QUERCETIN OR Take by mouth 2 (two) times a day. Active methylPREDNISolone , NEGRO, (MEDROL DOSEPAK) 4 MG tablet Take 1 tablet (4 mg total) by mouth see administration instructions. 6 TABLETS ON DAY ONE, 5 TABLETS DAY TWO, 4 TABLETS DAY THREE, 3 TABLETS DAY FOUR, 2 TABLETS DAY FIVE, AND 1 TABLET DAY SIX 1 each 03/13/20 25 Active Additional Information Patient not taking.Reported on 03/27/2025 ondansetron (ZOFRAN-ODT) 4 MG disintegrating tablet Take 1 tablet (4 mg total) by mouth every 8 (eight) hours as needed. 20 tablet 03/27/20 25 Active Family History Medical History Relation Comments Cancer Father Prostate Hypertension Father Kidney Disease Father Stroke Mother Relation Status Comments Father Alive Mother Alive Social History Tobacco Use Types Packs/Day Years Used Date Smoking Tobacco: Former Cigarettes Passive Smoke Exposure: Never Smokeless Tobacco: Never Tobacco Cessation:Counseling Given: Not Answered Alcohol Use Standard Drinks/Week Comments Yes 0 (1 standard drink = 0.6 oz pur e alcohol) socially Comments No Sex and Gender Information Value Date Recorded Sex Assigned at Female 03/13/2025 5:41 PM CDT Legal Sex Female 4:38 PM CDT Gender Identity Not on file Sexual Orientation Not on file Last Filed Vital Signs Vital Sign Reading Time Taken Comments Blood Pressure 130/70 03/27/2025 5:02 PM CDT Pulse 78 03/27/2025 5:02 PM CDT Temperature 36.1 C (97 F) 03/27/2025 5:02 PM CDT Respiratory Rate 16 03/27/2025 5:02 PM CDT Oxygen Saturation 99% 03/27/2025 5:02 PM CDT Inhaled Oxygen Concentration - - Weight 72.6 kg (160 lb) 03/27/2025 5:02 PM CDT Height 162.6 cm (5' 4) 03/27/2025 5:02 PM CDT Body Mass Index 27.46 03/27/2025 5:02 PM CDT Plan of Treatment Health Maintenance Due Date Last Done Comments Colorectal Cancer Screening Colonoscopy (10 Years) 1973 Annual Physical 1976 Hepatitis C 1991 DTaP, Tdap and Td Vaccines ( 1 - Tdap) 1992 Hepatitis B Vaccines (1 of 3 - 19+ 3-dose series) 1992 Cervical Cancer Screening Pa spencer with HPV Testing (Age 30 to 64) Every 5 Years 05/05/2021 05/05/2016 Pneumococcal Vaccine: 50+ Years (1 of 1 - PCV) 2023 Zoster Vaccines (1 of 2) 2023 Mammogram Screening 02/21/2024 02/20/2022 PHQ-2 (Physician [place]) 11/22/2024 Cervical Cancer Screening Pa p Smear (Age 30 to 64) Every 3 Years 02/04/2025 02/04/2022, 05/05/2016 Cervical Cancer Screening wi th HPV 02/04/2025 COVID-19 Vaccine (2024- 6 season) 2025 11/28/2021, 05/09/2021, 04/18/2021 Influenza Adult (#1) 2025 Hepatitis A Vaccines Aged Out No long er eligible based on patient's age to complete this topic Meningococcal B Vaccine Aged Out No l onger eligible based on patient's age to complete this topic Meningococcal Vaccine Aged Out No sola juan eligible based on patient's age to complete this topic RSV Immunizations Under 20 Months Aged Out No longer eligible b ased on patient's age to complete this topic Insurance ALLIED BENEFITS Care Teams Gps Navigation Installer Relationship Specialty Start Date End Date Vandana Kenyon MD [address] [facility] [address] [place] [address] PCP - General FAMILY PRACTICE 03/27/25
--- OUTSIDE RECORDS SUMMARY | 2025-09-09 13:27 | XMS_ITS | Patient Health Record ---
Author Organization [facility] Address [address] [place], [place] [address] Care Team Providers Care Sharepoint Admin Name Role Phone BEATRIZ Steward Unavailable [phone] Keyonna Ventura Unavailable Unavailable Reason For Referral No Information Medications Medication SIG (Take, Route, Frequency, Duration) Notes Start Date End Date Status 12 HR bupropion hydrochloride 100 MG Extended Release Oral Tablet [Wellbutrin] ORAL 12 HR bupropion hydrochloride 100 MG Extended Release Oral Tablet [Wellbutrin]Original Acacptlfuy66 HR bupropion hydrochloride 100 MG Extended Release Oral Tablet [Wellbutrin] *Reorder from [place] for eRx and 08/11/2019 Active montelukast 10 MG Oral Tablet [Singulair] ORAL montelukast 10 MG Oral Tablet [Singulair]Original Medicationmontelukast 10 MG Oral Tablet [Singulair] *Reorder from [place] for eRx and Interaction Alerts* 08/11/2019 Active Ibuprofen 800 MG Oral Tablet ORAL ibuprofen 800 MG Oral TabletOriginal Medicationibuprofen 800 MG Oral Tablet *Reorder from [place] for eRx and Interaction Alerts* 08/11/2019 Active Plan Of Treatment No Information Insurance Providers Payer Name Payer Address Payer Phone Subscriber Number Group Number Insured Name Patient Relationship to Insured Coverage Start Date Coverage End Date [facility] ATTN CLAIMS [address] [place] [address] [id number] JOSE DE JESUS RODRIGUEZ Self - patient is the insured
--- OUTSIDE RECORDS SUMMARY | 2025-09-09 13:27 | XMS_ITS | Patient Health Record ---
Author Organization [facility] Address [address] [address] Care Team Providers Care Video Editor Name Role Phone Jung Corey Primary Care Provider Reason For Referral No Information Medications Medication SIG (Take, Route, Frequency, Duration) Notes Start Date End Date Status Nasonex 2SPRAY EACH NARE DAILY [facility] Active Singulair 10MG PO DAILY [facility] Acti ve miSOPROStol 100MCG PO QID [facility] Active Vimovo 1TAB PO BIDPC [facility] Active Clarinex 5MG PO DAILY [facility] Active Effexor XR 150MG PO BID [facility] Ac tive Wellbutrin SR 150MG PO BEDTIME [facility] Active Xanax 0.25MG PO Q12HR [facility] Active [place] 3 1CAP PO DAILY [facility] Active Vitamin B Complex 1TAB PO DAILY [facility] Active Freeze Dried Acidophilus 1CAP PO DAILY [facility] Active Vitamin D 1000UNIT PO DAILY [facility] Active Immunizations Vaccine Route Administration Date Status Comme nts Influenza (split), 3 yrs and above Unknown 09/11/2013 P ending Inactivated Problems Problem Type SNOMED Code ICD Code Onset Dates Problem Status W/U Status Risk Notes Problem Hyperlipidemia (03816034) Other and unspecified hyperlipidemia (272.4) Active confirmed Problem 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, 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 Problem Depressive disorder (41792047) Depressive disorder, not elsewhere classified (311) Active confirmed Problem Allergic rhinitis (30631408) Allergic rhinitis, cause unspecified (477.9) Active confirmed Problem Deviated nasal septum (867431914) Deviated nasal septum (470) Active confirmed Problem Temporomandibular joint disorder (09609785) Temporomandibular joint disorders (524.6) Active confirmed Problem Esophageal reflux (096627132) Esophageal reflux (530.81) Active confirmed Problem Microscopic hematuria (494199548) Microscopic hematuria (599.72) Active confirmed Problem Dysuria (11392099) Dysuria (788.1) Active confi rmed Plan Of Treatment No Information Insurance Providers Payer Name Payer Address Payer Phone Subscriber Number Group Number Insured Name Patient Relationship to Insured Coverage Start Date Coverage End Date [employer] [address] [place], [place] [id number] JOSE DE JESUS RODRIGUEZ Self - patient is the insured Medical (General) History Surgical History Surgery Date(Month/Year) Childbirth ; Hernia Repair Bilateral ; Nasal Surgery ;
--- OUTSIDE RECORDS SUMMARY | 2025-09-09 13:27 | XMS_ITS | Clinical Summary ---
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 Name Role Phone Unavailable Primary Care Provider Unavailabl e Social History Tobacco Use Types Packs/Day Years Used Date Smoking Tobacco: Never Assessed Comments Unknown Sex and Gender Information Value Date Recorded Sex Assigned at Not on file Legal Sex Female 9:09 AM CDT Gender Identity Not on file Sexual Orientation Not on file Plan of Treatment Health Maintenance Due Date Last Done Comments Hepatitis C Virus (HCV) Screening 1973 TdaP Immunization 1973 Hepatitis B Immunization (1 of 3 - 19+ 3-dose series) 1992 Pap Smear 1994 Cervical Cancer Screening (CCS) 2003 HPV/Cotest 2003 Cologuard 2018 Colonoscopy 2018 Colorectal Cancer Screening 2018 Immunochemical Fecal Occult Blood 2018 Pneumococcal Immunization (5 0+ years) (1 of 1 - PCV) 2023 Zoster Immunization (1 of 2) 2023 Influenza Immunization (#1) 2025 SARS-COV-2 Immunization ( - season) 2025 05/09/2021, 04/18/2021 Respiratory Syncytial Virus (RSV) Immunization (Adult) (1 - 1-dose 75+ series) 2048 Human Papillomavirus (HPV) Immunization Aged Out No longer eligible b ased on patient's age to complete this topic Meningococcal Immunization (ACWY) Aged Out No longer eligible b ased on patient's age to complete this topic Rotavirus Immunization Aged Out No lo nger eligible based on patient's age to complete this topic
--- OUTSIDE RECORDS SUMMARY | 2025-09-09 13:27 | XMS_ITS | Patient Health Record ---
Author Organization [facility] Address [address] [place] [address] Support Name Relationship Address Phone William Dent Emergency Contact [address] [place] [address] Kenia Izquierdo Guarantor Unknown Reason For Referral No Information Medications Medication SIG (Take, Route, Frequency, Duration) Notes Start Date End Date Status Medrol 4 mg Tablet Therapy Pack as directed Orally As directed; Duration: 6 days 07/28/2019 Active Ibuprofen 800 MG Tablet 1 tablet with food or milk as needed Orally Three times a day; Duration: 30 days 07/28/2019 Active Singulair 5 MG Tablet Chewable 2 tablets Orally Once a day; Duration: 30 day(s) Active Wellbutrin *Reorder from [facility] for eRx and Interaction Alerts* Active Social History Social History Additional Details Category Social Info Options Details Migrated Social History Drugs/Alcohol: (Alcohol Screen):Did you have a drink containing alcohol in the past year?: Yes, Points: 0, Interpretation: Negative (Drugs):Have you used drugs other than those for medical reasons in the past 12 months? No Tobacco Use: (Tobacco Use/Smoking): Smoking Status:: nonsmoker Plan Of Treatment No Information Insurance Providers Payer Name Payer Address Payer Phone Subscriber Number Group Number Insured Name Patient Relationship to Insured Coverage Start Date Coverage End Date [employer] [address] [place] [phone] [id number] Kenia Izquierdo Self - patient is the insured Medical (General) History Surgical History Surgery Date(Month/Year) hernia repair
--- OUTSIDE RECORDS SUMMARY | 2025-09-09 13:28 | XMS_ITS | Patient Health Record ---
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 Name Role Phone Vandana Kenyon MD Primary Care Provider Kerrie Downey Unavailable [phone] Allergies Allergen (clinical drug ingredient) Drug/Non Drug Allergy documented on EMR Reaction Allergy Type Onset Date Status BIAXIN (uncoded) abdominal pain Allergy Active metronidazole Flagyl abdominal pain Drug Allergy Active Reason For Referral No Information Medications Medication SIG (Take, Route, Frequency, Duration) Notes Start Date End Date Status ASTELIN 137 MCG/INH 2 SPRAY(S), EACH NOSTRIL INTRANASALLY BID; Duration: 30 DAY(S) *Please review for potential replacement for e-prescription and drug interaction check* Active BUPROPION (EQV-WELLBUTRIN SR) 150 mg/12 hours 1 tab(s) orally 2 times a day usually only takes 1 Active ZYRTEC 10 mg 1 tab(s) orally once a day Active MONTELUKAST 10 mg 1 tab(s) orally once a day Active Flonase Allergy Relief 50 MCG/ACT 2 spray(s) intranasally (avoid nasal septum) twice daily; Duration: 30 day(s) Active Xyzal Allergy 24HR 5 MG 1 tab(s) orally once a day (in the evening); Duration: 30 day(s) Active Montelukast Sodium 10 MG 1 tab(s) orally once a day; Duration: 30 day(s) Active FLONASE 0.05 mg/inh 2 spray(s) intranasally (avoid nasal septum) twice daily; Duration: 30 day(s) Active buPROPion HCl ER (SR) 150 MG 1 tab(s) orally 2 times a day usually only takes 1 Active MONTELUKAST 10 mg 1 tab(s) orally once a day; Duration: 30 day(s) Active ZyrTEC Allergy 10 MG 1 tab(s) orally once a day Active Montelukast Sodium 10 MG 1 tab(s) orally once a day Active LO LOESTRIN FE with iron biphasic 10 mcg-1 mg 1 tab(s) orally once a day Active Lo Loestrin Fe 1 MG-10 MCG / 10 MCG 1 tab(s) orally once a day Active XYZAL 5 mg 1 tab(s) orally once a day (in the evening); Duration: 30 day(s) Active Social History Tobacco Use: Social History Observation Description Date Details (start date - stop date) Former Smoker NA - NA Smoking Smart Form: Question Answer Notes Are you a: former smoker Additional Findings:Tobacco Non-User Cur rent non-smoker, but past smoking history unknown Problems Problem Type SNOMED Code ICD Code Onset Dates Problem Status W/U Status Risk Notes Problem Allergic rhinitis caused by pollen (disorder) (48013003) Allergic rhinitis due to pollen (J30.1) Active confirmed Problem Allergic rhinitis caused by animal hair and dander ([id number] 109) Allergic rhinitis due to animal (cat) (dog) hair and dander (J30.81) Active confirmed Problem Allergic rhinitis (12929842) Other allergic rhinitis (J30.89) Active confirmed Problem Chronic rhinitis (43743474) Chronic rhinitis (J31.0) Active confirmed Problem Chronic rhinitis (64186930) Chronic rhinitis (J31.0) Active confirmed Problem Allergy status to other antibiotic agents (Z88.1) Active confirmed Plan Of Treatment No Information Insurance Providers Payer Name Payer Address Payer Phone Subscriber Number Group Number Insured Name Patient Relationship to Insured Coverage Start Date Coverage End Date [employer] [address] [place] [phone] [id number] Kenia Izquierdo Self - patient is the insured Medical (General) History Medical History History ICD Code anxiety Surgical History Surgery Date(Month/Year) Hernia Repair 1985 2000
[2025-09-09 13:30] VITALS: BP 129/69; PULSE 70; RESP 18; TEMP 36.6; O2SAT 100
--- NOTE | 2025-09-09 13:50 | ED_ITS ---
HPI - Extremity Injury (Lower) General Chief Complaint: Extremity Injury, Lower Stated Complaint: fall patient presents to the [facility] accompanied by friend with complaints of swelling, bruising, and pain to right ankle that began last night. Patient reports she was attempting to go up stairs and slipped due to rain and wetness t wisting and injuring this right ankle. Patient does report history of injuries to left ankle and did have a walking boot which she has been wearing. Also noted using some [id number] medication with temporary relief of symptoms. Applied ice to the area without relief of swelling. Denies numbness or tingling in foot or toes. Related Data Home Medications ?Medication ?Instructions ?Recorded ?Confirmed ?Last Taken ?Type bupropion HCl 150 mg tablet,12 hr 150 mg PO DAILY 07/2511/27/23 Unknown History sustained-release montelukast 10 mg tablet 10 mg PO DAILY 08/21/2305/15 Unknown History norethindrone 1 mg-ethinyl 2 tablet PO DAILY 08/21/23 11/27/23 Unknown History estradiol 10 mcg (24)-iron 10 mcg(2) tablet (Lo Loestrin Fe) tramadol 50 mg tablet 50 mg PO PRN PRN Pain 11/27/23 Unknown History Allergies Allergy/AdvReac Type Severity Reaction Status Date / Time amoxicillin (From Amoxil) AdvReac Mild Hives Verified 11/27/23 12:02 clarithromycin (From Biaxin) AdvReac Mild Hives Verified 11/27/23 12:02 metronidazole (From Flagyl) AdvReac Mild Hives Verified 11/27/23 12:02 Review of Systems Constitutional: Constitutional: Reports as per HPI, Denies chills, Denies fatigue, Denies fever(s) and Denies weakness Eyes: Eyes: Reports no additional eye complaints Cardiovascular: Cardiovascular: Reports no additional cardiovascular complaints Respiratory: Respiratory: Reports no additional respiratory complaints Gastrointestinal: Gastrointestinal: Reports no additional gastrointestinal complaints Genitourinary: Genitourinary: Reports no additional female genitourinary complaints Musculoskeletal: Musculoskeletal: Reports as per HPI, Denies myalgias, Reports arthralgias, Reports joint swelling and Denies muscle cramps Integumentary/Breasts: Skin/Breast: Reports as per HPI, Denies pruritus, Denies rash and Denies skin ulcer Comments: Bruising right ankle Neurologic: Denies numbness and Denies weakness Psychiatric: Psychiatric: Reports no additional psychiatric complaints Endocrine: Endocrine: Reports no additional endocrine complaints Hematologic/Lymphatic: Hematologic/Lymphatic: Reports no additional hematologic/lymphatic complaints Allergic/Immunologic: Allergic/Immunologic: Reports no additional allergic/immunologic complaints [facility] Past Medical History Medical History Anxiety Exam Const: General: healthy appearing and no acute distress Nutritional Appearance: well nourished Orientation/consciousness: patient oriented x3 Limitations: no limitations Resp: Effort & Inspection: normal respiratory effort Auscultation: clear to auscultation bilaterally Cardio: Rate: regular rate Rhythm: regular rhythm Skin: General skin exam: normal color Rashes: no rashes Wounds: no wounds Neuro: General: patient oriented x3 Cranial nerves: Yes Nystagmus not present Speech: normal speech Gait exam (Neuro): Normal gait present Extrem: Right lower extremity: ankle Details: abnormal to inspection, tenderness Location: of the lateral malleolus, swelling Details: laterally, abnormal ROM and ecchymosis; no unusual warmth, no abrasions, no lacerations, no crepitus, no foreign bodies, no penetrating wound and achilles tendon exam normal Psych: Mental Status: mental status grossly normal Affect: normal affect Attitude: cooperative Course Course Level of Care: [facility] Visit Vital Signs Vital signs: Vital Signs Temperature 97.9 F 09/09/25 13:30 Pulse Rate 70 09/09/25 13:30 Respiratory Rate 18 09/09/25 13:30 Blood Pressure 129/69 09/09/25 13:30 Pulse Oximetry 100 09/09/25 13:30 Oxygen Delivery Room Air 09/09/25 13:30 Temperature 97.9 F 09/09/25 13:30 Pulse Rate 70 09/09/25 13:30 Respiratory Rate 18 09/09/25 13:30 Blood Pressure 129/69 09/09/25 13:30 Pulse Oximetry 100 09/09/25 13:30 Oxygen Delivery Room Air 09/09/25 13:30 MDM - Extremity Injury (Lower) MDM Narrative Medical decision making narrative: X-rays ordered awaiting final radiologist reading. fracture noted on x-ray. Patient does already have a walking boot present with her at the [facility]. Will place patient in [place]selmo wrap and encouraged her to wear the walking boot at all times and call for follow-up with orthopedics. Patient works for [employer] and would like to see someone in that area for follow-up. Name of [place] provider given to patient in case she is unable to get in with someone near her. The patient was evaluated by myself in the [facility]. History is obtained from patient who is an independent historian and physical exam was performed. Available medical records were reviewed at this time. Exam findings show no acute concerns or changes; patient is non-toxic appearing and is in no distress. Patient is appropriate for outpatient treatment and follow-up. I have evaluated and discussed social determinants of health with the patient that could potentially impact subsequent diagnosis and treatment plans. Differential diagnosis and treatment plan were discussed with the patient. Patient agrees with discussion and after shared medical decision making agrees with plan of care. All questions were answered to the patient's satisfaction. Differential Diagnosis Differential diagnosis: Likely ankle sprain and strain, puncture wound of foot, fracture of toe and ankle fracture Medical Records Attestation: I reviewed the patient's medical records. Imaging Data Attestation: I personally reviewed and interpreted this imaging study as follows: My impression: fracture distal fibula Radiologist's impression: mpression: No acute fracture or malalignment. Reviewed, dictated and finalized at location P. Impression: Fracture detailed above Reviewed, dictated and finalized at location P. Discharge Plan Discharge Clinical Impression: Nondisplaced fracture of distal end of right fibula Patient Disposition: Home Condition: Stable Instructions: Antibiotic Form, Ankle Fracture (ED) Additional Instructions: There is a fracture shown your x-ray. We have placed you in an immobilization keep this all times. May remove to shower. Call the orthopedic physician you have been given to schedule an appointment as soon as possible. Ensure to take a disc of your x-ray results with you. Ice to the area 15-20 minutes 4-6 times a day until follow up with orthopedics. Minimize activities and rest the affected area as much as possible. 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 You may take over the counter tylenol and ibuprofen as needed for pain. May use the tramadol as needed for severe pain. This medication can make you drowsy do not drive, drink alcohol or operate heavy machinery while taking this medication. If you notice significantly increased pain, redness, and numbness, or tingling does to the emergency room for further evaluation of symptoms. Patient Language: Nepalese Prescriptions: New tramadol 50 mg tablet 50 mg PO Q6H PRN (Reason: pain) Qty: 20 0RF No Action tramadol 50 mg tablet 50 mg PO PRN PRN (Reason: Pain) bupropion HCl 150 mg tablet sustained-release 12 hr 150 mg PO DAILY montelukast 10 mg tablet 10 mg PO DAILY Lo Loestrin Fe 1 mg-10 mcg (24)/10 mcg (2) tablet 2 tablet PO DAILY prednisone 20 mg tablet 40 mg PO DAILY 5 Days Qty: 10 0RF Follow-up/Referrals: Caleb Velazquez MD [Physician, Orthopedics] Kenyon,Vandana Avery MD [Primary Care Provider, Unknown] Stand Alone Forms: Work/School Release IP Time of Disposition: 14:04
== END 2025-09-09 14:18 | disposition home or self-care (01) ==
PROVIDERS: Emergency Provider Nurse Practitioner Family; PCP Family Medicine
DX: S82.831A Other fracture of upper and lower end of right fibula, initial encounter for closed fracture (principal); W10.9XXA Fall (on) (from) unspecified stairs and steps, initial encounter; F41.9 Anxiety disorder, unspecified
CPT/HCPCS: 73610; 73630; 99213; 99214; G0463